=== PATIENT | female | born 1945 | race Caucasian/White ===

== ENCOUNTER 2024-11-16 16:31 | Inpatient (IN) | payer MEDICARE, SELFPAY ==
[2024-11-16] VITALS (11 sets, daily range): BP systolic 110–160; BP diastolic 72–105; BMI 26.9; BMI 27.8
[2024-11-16 13:38] LABS: % Basophils 1.2 % (0-2); % Eosinophils 1.8 % (0-6); % Immature Granulocytes 0.1 % (0-0.5); % Lymphocytes 27.4 % (20.5-51.1); % Monocytes 9.4 % (1.7-9.3); % Neutrophils 60.1 % (42.2-75.2); Absolute Basophils 0.1 10^3/uL (0-0.2); Absolute Eosinophils 0.1 10^3/uL (0-0.7); Absolute Lymphocytes 1.9 10^3/uL (1.2-3.4); Absolute Monocytes 0.6 10^3/uL (0.1-0.6); Absolute Neutrophils 4.1 10^3/uL (1.4-6.5); Hematocrit 42.6 % (37.0-47.0); Hemoglobin 14.1 g/dL (12.0-16.0); Mean Corp Hgb Conc. 33.1 g/dL (33.0-37.0); Mean Corpuscular Hgb 30.1 pg (27.0-31.0); Mean Corpuscular Volume 90.8 fL (81.0-99.0); Mean Platelet Volume 9.2 fL (7.4-10.4); Nucleated Red Blood Cells % 0 %; Platelet Count 202 10^3/uL (130-400); Red Blood Cell Count 4.69 10^6/uL (4.20-5.40); Red Cell Dist. Width 12.7 % (11.5-14.5); White Blood Cell Count 6.8 10^3/uL (4.8-10.8)
[2024-11-16 13:53] LABS: ALT (SGPT) 12 U/L (0-35); AST (SGOT) 20 U/L (14-36); Albumin 4.4 g/dl (3.5-5.0); Alkaline Phosphatase 64 U/L (38-126); Blood Urea Nitrogen 16 mg/dl (7-17); Carbon Dioxide 27 mmol/L (22-30); Chloride 104 mmol/L (98-107); Glucose 122 mg/dl (70-99); Potassium 4.7 mmol/L (3.5-5.1); Sodium 137 mmol/L (135-145); Total Bilirubin 0.7 mg/dl (0.2-1.3); eGFR > 60.00
[2024-11-16 14:07] LABS: Troponin I 0.065 ng/ml
[2024-11-16] MEDS: NITROSTAT (SUBLINGUAL) 0.4 MG SL ×2 (14:38→19:36)
--- NOTE | 2024-11-16 14:45 | ED.GENMED ---
History of Present Illness
<Flori Clancy MD - Last Filed: 11/16/24 14:52>
General
Chief Complaint: Chest Pain
Time Seen by Provider: 11/16/24 14:11
<Dianne Keating PA-C - Last Filed: 11/16/24 20:27>
General
Source: patient
Exam Limitations: none
Nursing documentation reviewed up to this point in time: agreed with
History of Present Illness
History of Present Illness:
Patient is an 79-year-old female presenting to the emergency department for evaluation of chest pain. Patient states that around 1215 while in congregational she started with a tightness sensation in her lower chest/epigastric region. This did occur as
her daughter seem to be having some type of psychiatric episode and was requiring physical restraining. Patient states there was a pain into her back, as well. Patient denies any associated shortness of breath, lightheadedness/dizziness,
nausea/vomiting, diaphoresis, visual changes, numbness/tingling in extremities.
By my assessment�patient reports a 7/10 tightness sensation in lower chest without radiation to back, jaw, shoulders.
Patient did receive 324 mg aspirin via EMS.
Patient denies prior cardiac history. Patient does not smoke.
Review of Systems
<Dianne Keating PA-C - Last Filed: 11/16/24 20:27>
Review of Systems
Allergies reviewed?: Yes
All Other Systems: ROS reviewed and negative except as documented in HPI and ROS
Phy Exam
<Dianne Keating PA-C - Last Filed: 11/16/24 20:27>
Physical Exam
Physical Exam:
Vitals: Mildly hypertensive on my assessment. Afebrile
General: Patient is well appearing, no acute distress. Nontoxic appearing
Skin: Warm and dry, no rashes or lesions
Head: Normocephalic, atraumatic
Eyes: Sclera nonicteric. EOMs intact. No nystagmus.
Throat: Protecting airway
Neck: Normal ROM, no cervical spine tenderness, no meningismus
Cardiac: Regular rate and rhythm, no murmurs. Mild reproducible tenderness in epigastric region.
Pulm: Normal respiratory effort, no wheezes, rales, rhonchi heard on exam.
Abdomen: Abdomen soft. No abdominal tenderness.
Extremities: No evidence of cyanosis or edema. 2+ radial pulses bilaterally.
Neuro: AAOx3. Grossly intact.
Psychiatric: Normal affect.
Scores
<Dianne Keating PA-C - Last Filed: 11/16/24 20:27>
Heart Score for Chest Pain Patients
STEMI patient?: No
History: Moderately Suspicious
ECG: Nonspecific Repolarization
Age: >/= 65 years
Risk Factors: 1 or 2 Risk Factors
Troponin: >/= 3 x Normal Limit
Heart Score for Chest Pain Patients: 7
Heart Score Risk: 72.7 % MACE over next 6 weeks
Course
<Flori Clancy MD - Last Filed: 11/16/24 14:52>
Orders/Labs/Results
Orders:
Orders
11/16/24 13:14
EKG [Electrocardiogram (*1)] Urgent
Reason for Study: Chest Pain
EKG- Treatment ONCE
11/16/24 13:32
Complete Blood Count/With Diff Urgent
Comprehensive Metabolic Panel Urgent
Troponin I Urgent
11/16/24 14:28
Electrocardiogram (*1) Urgent
Reason for Study: Chest Pain
EKG- Treatment ONCE
11/16/24 14:36
Nitroglycerin Sublingual [Nitrostat (Sublingual)] 0.4 mg .ROUTE .STK-MED ONE
11/16/24 14:37
Nitroglycerin Sublingual [Nitrostat (Sublingual)] 0.4 mg SL NOW STA
11/16/24 14:52
CR Chest - 2 Views Urgent
Comment:
Reason For Exam: chest pain
11/16/24 Dinner
Cholesterol Lowering
At Your Request: Full Participation
Does patient need a safe tray?: No
Cholesterol Lowering: Sodium, 2 Gram
Heparin 4,000 units IV NOW STA
Heparin 49840 Units/250 ml 25,000 units in 250 ml IV PER PROTOCOL
Weight to be used for heparin protocol in kilograms (kg):: 87.5
Protocol:: Cardiac Tx/Acute Coronary
PTT Goal Range to be used:: PTT 73 to 111 seconds
Order type:: Initial
INITIAL Infusion Dose (UNITS/KG/hr) & then follow protocol:: 12 units/kg/hr
Infusion Dose in UNITS/hr & then follow protocol (UNITS/hr):: 1,000
INFUSION RATE in mL/hr & then follow protocol (mL/hr):: 10
PTT less than or equal to 64 seconds:: Increase rate by 200 units/hr (+ 2 mL/hr)
PTT 64.1 to 72.9 seconds:: Increase rate by 100 units/hr (+ 1 mL/hr)
PTT 73 to 111 seconds:: Target Range. No change in rate.
PTT 111.1 to 130.9 seconds:: Decrease rate by 100 units/hr (- 1 mL/hr)
PTT 131 to 199.9 seconds:: HOLD for 1 hr. Then decrease rate by 200 units/hr (- 2 mL/hr)
PTT greater than or equal to 200 seconds:: HOLD for 2 hrs & Notify Provider. Then decrease by 200 units/hr (-
2 mL/hr)
Lab follow-up:: Each change, PTT q6h until 2 consecutive are therapeutic. Then PTT
daily.
Nursing to Place Non Medication Order As Directed
Physician Order: PTT 6 hours after initial start of Heparin infusion
Above order entered?: Yes
11/16/24 15:08
CARDIOLOGY CONSULT Urgent
Consulting Provider: Shayla Galindo
Was physician already notified: Yes
Metoprolol [Lopressor] 25 mg PO NOW STA
11/16/24 15:40
Admit/Transfer Patient As Directed
Co-Sign Provider:
Level of Care: Inpatient admission
Assign to:: IVU
Physician / Group: Jorge Shea
Diagnosis: chest pain, NSTEMI
Reason for Hospitalization: chest pain, NSTEMI
Expected length of stay greater than two midnights?: Yes
ELOS- Estimated Length of Stay in days: 2
I certify the patient meets the requirements for IP care: Yes
PRN Pain Medication Management As Directed
May give lesser potent ordered pain med per pt: Yes
preference::
Protocol:: Medication orders for pain may be administered in a
manner that supports deferring to patient preference
when the pt is:
- Requesting an ordered lesser potent pain medication.
Least to most potent pain medications are defined
as: acetaminophen < NSAID < tramadol < opioids
(morphine, oxycodone, hydromorphone).
- Requesting a lesser dose of the same medication IF
ORDERED.
- Requesting a less intrusive route of administration
if both routes are prescribed by the provider (PO <
IV).
11/16/24 15:41
Code Status As Directed
Resuscitation Status: Full Code
11/16/24 16:06
PTT Urgent
Comment: Obtain baseline before beginning heparin infusion if not already collected
Troponin I Urgent
11/16/24 16:30
Electrocardiogram (*1) Urgent
Reason for Study: Chest Pain
11/16/24 18:00
Nitroglycerin Sublingual [Nitrostat (Sublingual)] 0.4 mg SL [id number] PRN
Ondansetron Injectable [Zofran] 4 mg IV Q6HPRN PRN
Polyethylene Glycol Powder [Miralax] 17 grams PO DAILYPRN PRN
11/16/24 18:00
Glycohemoglobin (HgbA1c) Routine
Activity As Directed
Activity Level: With Assistance
INT (Intravenous Needle Therapy) As Directed
Comment: maintain peripheral IV access
Intake/ Output As Directed
Frequency: Per unit guidelines
Vital Signs As Directed
Frequency: q4h
Weight As Directed
Frequency: Daily
O2 Therapy [RESP] Routine
Titrate/Wean O2 to maintain O2 sat greater than (%): 88
11/16/24 18:40
Artificial Tears (Pf) [Refresh Eye Drops (Pf)] 1 drops BOTH EYES DAILYPRN PRN
11/16/24 19:00
Troponin I Q3H
Comment: at admit & Q3H for 3 total including ED draws, obtain ECG with each level
11/16/24 20:00
Timolol Maleate/Dorzolam HCl [Cosopt Eye Drops] 1 drop BOTH EYES BID
11/16/24 22:00
Troponin I Q3H
Comment: at admit & Q3H for 3 total including ED draws, obtain ECG with each level
11/17/24 Breakfast
NPO
Allow oral meds: Yes
Allow clear liquids: 4hrs prior to procedure
Comment: may have unrestricted clear liquid up to 4 hrs prior to scheduled procedure
Complete Blood Count/With Diff IN AM
Comprehensive Metabolic Panel IN AM
Lipid Profile [Cardiovascular Evaluation] IN AM
Abnormal Lab Results
11/16/24 11/16/24
13:32 16:06
Monocytes % 9.4 H %
(1.7-9.3)
Glucose 122 H mg/dl
(70-99)
Troponin I 0.065 H* ng/ml 0.796 H* D ng/ml
11/16/24 13:32
11/16/24 13:32
Vital Signs
Initial and Last Documented VS:
Initial Vital Signs
Temp Pulse Resp BP Pulse Ox
97.4 F 70 16 160/105 99
11/16/24 13:21 11/16/24 13:21 11/16/24 13:21 11/16/24 13:21 11/16/24 13:21
Last Documented Vital Signs
Temp Pulse Resp BP Pulse Ox
97.6 F 68 18 126/73 97
11/16/24 20:15 11/16/24 20:15 11/16/24 18:05 11/16/24 20:00 11/16/24 20:15
<Dianne Keating PA-C - Last Filed: 11/16/24 20:27>
Orders/Labs/Results
Orders:
Orders
11/16/24 13:14
EKG [Electrocardiogram (*1)] Urgent
Reason for Study: Chest Pain
EKG- Treatment ONCE
11/16/24 13:32
Complete Blood Count/With Diff Urgent
Comprehensive Metabolic Panel Urgent
Troponin I Urgent
11/16/24 14:28
Electrocardiogram (*1) Urgent
Reason for Study: Chest Pain
EKG- Treatment ONCE
11/16/24 14:36
Nitroglycerin Sublingual [Nitrostat (Sublingual)] 0.4 mg .ROUTE .STK-MED ONE
11/16/24 14:37
Nitroglycerin Sublingual [Nitrostat (Sublingual)] 0.4 mg SL NOW STA
11/16/24 14:52
CR Chest - 2 Views Urgent
Comment:
Reason For Exam: chest pain
11/16/24 Dinner
Cholesterol Lowering
At Your Request: Full Participation
Does patient need a safe tray?: No
Cholesterol Lowering: Sodium, 2 Gram
Heparin 4,000 units IV NOW STA
Heparin [id number] Units/250 ml 25,000 units in 250 ml IV PER PROTOCOL
Weight to be used for heparin protocol in kilograms (kg):: 87.5
Protocol:: Cardiac Tx/Acute Coronary
PTT Goal Range to be used:: PTT 73 to 111 seconds
Order type:: Initial
INITIAL Infusion Dose (UNITS/KG/hr) & then follow protocol:: 12 units/kg/hr
Infusion Dose in UNITS/hr & then follow protocol (UNITS/hr):: 1,000
INFUSION RATE in mL/hr & then follow protocol (mL/hr):: 10
PTT less than or equal to 64 seconds:: Increase rate by 200 units/hr (+ 2 mL/hr)
PTT 64.1 to 72.9 seconds:: Increase rate by 100 units/hr (+ 1 mL/hr)
PTT 73 to 111 seconds:: Target Range. No change in rate.
PTT 111.1 to 130.9 seconds:: Decrease rate by 100 units/hr (- 1 mL/hr)
PTT 131 to 199.9 seconds:: HOLD for 1 hr. Then decrease rate by 200 units/hr (- 2 mL/hr)
PTT greater than or equal to 200 seconds:: HOLD for 2 hrs & Notify Provider. Then decrease by 200 units/hr (-
2 mL/hr)
Lab follow-up:: Each change, PTT q6h until 2 consecutive are therapeutic. Then PTT
daily.
Nursing to Place Non Medication Order As Directed
Physician Order: PTT 6 hours after initial start of Heparin infusion
Above order entered?: Yes
11/16/24 15:08
CARDIOLOGY CONSULT Urgent
Consulting Provider: Shayla Galindo
Was physician already notified: Yes
Metoprolol [Lopressor] 25 mg PO NOW STA
11/16/24 15:40
Admit/Transfer Patient As Directed
Co-Sign Provider:
Level of Care: Inpatient admission
Assign to:: IVU
Physician / Group: Jorge Shea
Diagnosis: chest pain, NSTEMI
Reason for Hospitalization: chest pain, NSTEMI
Expected length of stay greater than two midnights?: Yes
ELOS- Estimated Length of Stay in days: 2
I certify the patient meets the requirements for IP care: Yes
PRN Pain Medication Management As Directed
May give lesser potent ordered pain med per pt: Yes
preference::
Protocol:: Medication orders for pain may be administered in a
manner that supports deferring to patient preference
when the pt is:
- Requesting an ordered lesser potent pain medication.
Least to most potent pain medications are defined
as: acetaminophen < NSAID < tramadol < opioids
(morphine, oxycodone, hydromorphone).
- Requesting a lesser dose of the same medication IF
ORDERED.
- Requesting a less intrusive route of administration
if both routes are prescribed by the provider (PO <
IV).
11/16/24 15:41
Code Status As Directed
Resuscitation Status: Full Code
11/16/24 16:06
PTT Urgent
Comment: Obtain baseline before beginning heparin infusion if not already collected
Troponin I Urgent
11/16/24 16:30
Electrocardiogram (*1) Urgent
Reason for Study: Chest Pain
11/16/24 18:00
Nitroglycerin Sublingual [Nitrostat (Sublingual)] 0.4 mg SL [id number] PRN
Ondansetron Injectable [Zofran] 4 mg IV Q6HPRN PRN
Polyethylene Glycol Powder [Miralax] 17 grams PO DAILYPRN PRN
11/16/24 18:00
Glycohemoglobin (HgbA1c) Routine
Activity As Directed
Activity Level: With Assistance
INT (Intravenous Needle Therapy) As Directed
Comment: maintain peripheral IV access
Intake/ Output As Directed
Frequency: Per unit guidelines
Vital Signs As Directed
Frequency: q4h
Weight As Directed
Frequency: Daily
O2 Therapy [RESP] Routine
Titrate/Wean O2 to maintain O2 sat greater than (%): 88
11/16/24 18:40
Artificial Tears (Pf) [Refresh Eye Drops (Pf)] 1 drops BOTH EYES DAILYPRN PRN
11/16/24 19:00
Troponin I Q3H
Comment: at admit & Q3H for 3 total including ED draws, obtain ECG with each level
11/16/24 20:00
Timolol Maleate/Dorzolam HCl [Cosopt Eye Drops] 1 drop BOTH EYES BID
11/16/24 22:00
Troponin I Q3H
Comment: at admit & Q3H for 3 total including ED draws, obtain ECG with each level
11/17/24 Breakfast
NPO
Allow oral meds: Yes
Allow clear liquids: 4hrs prior to procedure
Comment: may have unrestricted clear liquid up to 4 hrs prior to scheduled procedure
Complete Blood Count/With Diff IN AM
Comprehensive Metabolic Panel IN AM
Lipid Profile [Cardiovascular Evaluation] IN AM
Abnormal Lab Results
11/16/24 11/16/24
13:32 16:06
Monocytes % 9.4 H %
(1.7-9.3)
Glucose 122 H mg/dl
(70-99)
Troponin I 0.065 H* ng/ml 0.796 H* D ng/ml
11/16/24 13:32
11/16/24 13:32
Vital Signs
Initial and Last Documented VS:
Initial Vital Signs
Temp Pulse Resp BP Pulse Ox
97.4 F 70 16 160/105 99
11/16/24 13:21 11/16/24 13:21 11/16/24 13:21 11/16/24 13:21 11/16/24 13:21
Last Documented Vital Signs
Temp Pulse Resp BP Pulse Ox
97.6 F 68 18 126/73 97
11/16/24 20:15 11/16/24 20:15 11/16/24 18:05 11/16/24 20:00 11/16/24 20:15
<Dianne Keating PA-C - Last Filed: 11/16/24 20:27>
MDM/Problems Addressed
Differential Diagnosis Includes:
Not limited to: ACS, panic attack, GERD, Takotsubo cardiomyopathy, aortic dissection, etc.
MDM/Problems Addressed:
79-year-old female presenting via EMS with acute onset chest discomfort after confrontation with daughter. On arrival�patient hypertensive initially which did improve by my assessment. Otherwise stable vital signs. She reports initial 03/19 chest
discomfort without radiation. Initial EKG does show mild T wave flattening in V3-V6 also noted in 3, aVF. There was initial concern for ACS. Feel aortic dissection less likely as patient's hypertension improved, has palpable and equal distal
pulses and equal BPs although will obtain chest x-ray for further evaluation. Basic labs and troponin were sent off. CBC/CMP unremarkable although troponin elevated to 0.065. Repeat EKG obtained by my assessment shows new T wave inversions in
leads V3 to V6, also mildly noted in 3, aVF. Chest x-ray does not show widened mediastinum. Will trend troponin. Cardiology consulted.
Concern for NSTEMI with elevated troponin, ischemic changes on EKG, and chest discomfort. Patient was given 1 sublingual nitroglycerin with complete improvement of pain. After discussion with cardiology�heparin drip was initiated in ED and patient
was admitted to hospitalist. Plan for cardiac echo in morning to rule out Takotsubo cardiomyopathy and then cardiac catheterization in afternoon, if needed. Patient accepted to hospital service in stable condition.
Chronic conditions affecting care:
N/A
Acute Exacerbation and/or Progression of Chronic Illness:
N/A
<Dianne Keating PA-C - Last Filed: 11/16/24 20:27>
*Radiology
Radiology exam reviewed: preliminary read by ED provider (Chest x-ray reviewed by me-no acute abnormality) and radiology read reviewed
*Pulse Oximetry
Patient hypoxic: no
*EKG
Interpreted by ED Provider?: Yes
EKG Intrepretation Date: 11/16/24
Interpretation: abnormal
Comparison EKG: changes noted
Heart Rate: 76
Rate: normal
Rhythm: sinus
[place]: normal axis
Interval: normal QT interval
QRS Pattern: normal QRS
Ischemia: T-wave inversion (T wave inversion V 3, V4, V6)
*Helicopter Pilot Interpretation
Rate: normal
Interpretation: normal
Heart Rate: 72
Rhythm: sinus
*Critical Care Note
Total Time (30-74mins, 75-104mins- exclusive of procedures): 35
comment:
Critical care statement: A total of 35 minutes of critical care time was provided for this patient. This includes management of unstable vital signs, evaluation of the patient at bedside, reviewing the patient's pertinent medical records, discussion
with consultants, review of old EKGs and review of pertinent medical records. This time with separate from time utilized to perform the aforementioned documented procedures
<Dianne Keating PA-C - Last Filed: 11/16/24 20:27>
Patient Management
Discussion with other providers: Hospitalist and Director Internal Audit (Case discussed with cardiology)
Escalation/DeEscalation of care consider admission/obs:
Admit indicated
ED Attending Note
<Flori Clancy MD - Last Filed: 11/16/24 14:52>
ED Attending Note
Patient seen and examined by attending physician: Yes
I performed the substantive portion of visit, reviewed & personally made and approve the management plan that is documented in note by myself or CHANEL.: Yes
ED Attending Note:
I have seen and evaluated the patient with a [id number] encounter. I have spoken to the [PA] and involved in the medical history, the physical exam, medical decision making.
Evaluation and management service: agree unless noted differently below.
Results interpretation: agree unless noted differently below.
79-year-old woman presenting to the emergency department chest pain. Patient states that she was at congregational when she had a confrontation with her daughter and developed midsternal chest pain. It does not radiate. She has never had this pain
before. It is not exertional. She has had a stress test done that was normal a few years ago. Denies any shortness of breath diaphoresis nausea vomiting. Per medics they did give her 324 of aspirin. Patient states that she continues to have
similar 10 pain.
GENERAL: in no acute distress
HEENT: normocephalic, extraocular movements intact, moist oral mucosa
NECK: normal inspection
RESPIRATORY: no respiratory distress, clear to auscultation bilaterally
CARDIOVASCULAR: regular rate and rhythm, 2+ radial pulses bilaterally,
ABDOMEN/: soft, non-distended, non-tender to palpation, no rebound or guarding
EXTREMITIES: non-tender, no edema/swelling
NEUROLOGIC: awake and alert, moves all extremities
SKIN: warm
79-year-old woman presenting to the emergency department with chest pain that occurred after confrontation with her daughter. Vitals are initially notable for hypertension that improved without any intervention. Concern for ACS. Blood work
obtained does show elevated troponin. EKG per my interpretation with T wave inversion V3 to v6. As well as an 3 and aVF. Will discuss with cardiology. Patient was given nitro that resolved her pain. Patient will need admission for further
evaluation
<Dianne Keating PA-C - Last Filed: 11/16/24 20:27>
-
Portions of this chart may have been created with voice recognition software.� Occasional wrong word or��sound alike� substitutions may have occurred due to the inherent limitations of voice recognition software.
Discharge Plan
Departure
Patient Disposition: Admit
Date of Disposition: 11/16/24
Time of Disposition: 15:08
Presentation/result/management discussed w/ accepting MD/DO: Hospitalist
Discharge Problem:
Non-ST elevation [place] (NSTEMI)
Interventions
Interventions:
*Risk Screen - Suicide Last Done: 11/16/24 14:23
*General Assessment Last Done: 11/16/24 14:23
*Neglect/Abuse Screening Last Done: 11/16/24 14:23
*ED COVID-19 Vaccine History Last Done: 11/16/24 19:38
*Nursing Disposition Last Done: 11/16/24 17:56
ED- Cardiac Assessment Last Done: 11/16/24 14:23
Discharge Date and Time
Discharge Date/Time: 11/16/24 17:56
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
[2024-11-16] MEDS: HEPARIN 4000 UNITS IV (15:29)
[2024-11-16] MEDS: LOPRESSOR 25 MG PO ×2 (15:29→20:00)
--- NOTE | 2024-11-16 15:36 | PHANOTE ---
med rec tech: patient gets her eye drops filled by mail order (possibly [facility]) and I cannot confirm in [facility]
--- NOTE | 2024-11-16 15:40 | HPS.HSE ---
Family Physician
-
Family Physician: Krystian Martinez
Chief Complaint
-
Substernal chest pain
History of Present Illness
Patient is 79-year-old female with past medical history of glaucoma, history of total vaginal hysterectomy/BSO, appendectomy/history of colon resection for diverticulitis, history of cholecystectomy, bilateral TKR, tonsillectomy, bilateral cataract
surgery came to ER with new onset of substernal chest discomfort with nonradiating in nature which started in yazdanism today. Patient denies any associated diaphoresis/nausea. No previous history of coronary issues or similar episodes. Denies
dizziness/palpitation. Patient used to smoke in the past no alcohol use, no prediabetes, no history of premature coronary disease in family. Initial evaluation showing minimal troponin elevation with EKG showing anterolateral lead T wave
inversion. Patient loaded with aspirin 325 mg and started on heparin drip by cardiology. Patient being admitted to cardiac unit for further monitoring.
No GI/ complaints
Medical History
Past Medical History
Past Medical History: Reports Other
Additional Past Medical History:
history of glaucoma, history of total vaginal hysterectomy/BSO, appendectomy/history of colon resection for diverticulitis, history of cholecystectomy, bilateral TKR, tonsillectomy, bilateral cataract surgery
Past Surgical History: Reports Other
Social History
Tobacco: Former Smoker
Alcohol: None
Drug: None
Employment: Employed
Family History
Family History: Not pertinent
Allergies / Home Medications
Allergies reflects when Allergies were last updated in [facility].
Home Medications with original date entered in [employer] [facility]
Allergy/Medication List:
Allergies
Allergy/AdvReac Type Severity Reaction Status Date / Time
egg Allergy Unknown Verified 11/16/24 13:26
shellfish derived Allergy Unknown Verified 11/16/24 13:26
shrimp Allergy Unknown Verified 11/16/24 13:26
amoxicillin [From Augmentin] AdvReac Nausea / Verified 11/16/24 13:26
Vomiting
clavulanic acid AdvReac Nausea / Verified 11/16/24 13:26
[From Augmentin] Vomiting
Home Medications
ascorbic acid (vitamin C) 500 mg tablet 500 mg PO DAILY 11/16/24
dorzolamide 22.3 mg-timolol 6.8 mg/mL eye drops (Cosopt) 1 drp BOTH EYES BID 11/16/24
peg 400-propylene glycol (PF) 0.4 %-0.3 % eye drops in a dropperette (Systane (PF)) 1 drp BOTH EYES DAILYPRN PRN dry eyes 11/16/24
polyethylene glycol 3350 17 gram oral powder packet 17 g PO DAILYPRN PRN constipation 11/16/24
zinc gluconate 50 mg tablet 50 mg PO DAILY 11/16/24
Review of Systems
-
A 12 point ROS was completed and negative except as noted: Yes
Physical Exam
Vital Signs
Vital Signs
Temp Pulse Resp BP Pulse Ox
97.4 F 82 16 136/84 99
11/16/24 13:21 11/16/24 15:29 11/16/24 13:21 11/16/24 15:29 11/16/24 14:26
Physical Exam
General: Well Developed, Well Nourished and No Apparent Distress
HEENT: NormoCephalic, Moist mucous membranes and Atraumatic
Respiratory: Clear
Cardiac: S1/S2 and Regular Rhythm; No Murmur or Rub
GI: Soft, Non Tender, Non Distended and Normal Bowel Sounds; No Organomegaly
Rectal: Deferred by Provider
Musculoskeletal: No Clubbing, No Cyanosis and No Edema
Skin: No Rash
Neuro: Nonfocal/grossly intact
Laboratory Results
-
11/16/24 13:32
11/16/24 13:32
Laboratory Results
Total Bilirubin 0.7 mg/dl (0.2-1.3) 11/16/24 13:32
AST 20 U/L (14-36) 11/16/24 13:32
ALT 12 U/L (0-35) 11/16/24 13:32
Alkaline Phosphatase 64 U/L (38-126) 11/16/24 13:32
Troponin I 0.065 ng/ml H* 11/16/24 13:32
Impression/Plan
-
1. NSTEMI
Troponin elevation
-Patient comes in for classical substernal chest pain, no nausea/diaphoresis. Relieved by nitro pills
-No previous history of coronary artery disease
-Non-smoker/nondiabetic. No hyperlipidemia. No premature coronary disease history in family.
-Patient had previous stress test and was negative
-Troponin marginally elevated to 0.065. f/u trop ordered
-Repeat EKG showing T wave inversion in V2-V4 leads
-Patient got aspirin 325 mg in ER, started on heparin drip
-Cardiology evaluated and likely planning to do an echocardiogram/heart catheterization tomorrow
-Maintain n.p.o. past midnight
-Admit to telemetry/IV U floor
history of glaucoma
history of total vaginal hysterectomy/BSO
appendectomy
history of colon resection for diverticulitis
history of cholecystectomy
bilateral TKR
tonsillectomy
bilateral cataract surgery
DVT PPX -heparin drip
Full code
Total time spent : 77 mins
I personally saw and examined the patient.
I have reviewed all diagnostic interpretations and treatment plans as written.
Time includes patient management by me, time spent at the patients bedside, time to review lab and imaging results, discussing patient care, documentation in the medical record, and time spent with the family or caregiver and discussing care plan
with RN/Consultants.
[2024-11-16 16:32] LABS: APTT 25.4 Sec (23.4-35.0)
[2024-11-16 17:17] LABS: Troponin I 0.796 ng/ml
[2024-11-16] MEDS: HEPARIN 25000 UNITS/250 ML IV (18:09)
--- NOTE | 2024-11-16 19:16 | PTCARENOTE ---
Received pt from the ED. Pt c/o 1 out of 10 left chest 'ache'. Pt stated that the 'ache' was located to the lower left boarder of her sternum. She stated that this ache started about 15 minutes prior to arrival in IVU. Pt stated that this 'ache'
was not the same feeling or location of the chest pain that brought her to the ED. She feels that the original discomfort 'migrated.' EKG obtained. Heparin drip initiated at 10 ml/hr. Pt instructed to notify catering staff member if her 'ache' worsened.
Report given to equipment lead RN, who assumed care of the pt.
[2024-11-16] MEDS: LIPITOR 20 MG PO (19:59)
[2024-11-16] MEDS: COSOPT EYE DROPS 1 DROP BOTH EYES (20:03)
[2024-11-16 22:16] LABS: Troponin I 0.997 ng/ml
[2024-11-16 23:45] LABS: APTT 74.2 Sec (23.4-35.0)
[2024-11-16 23:46] LABS: Troponin I 0.878 ng/ml
[2024-11-17] VITALS (15 sets, daily range): BP systolic 92–134; BP diastolic 59–82; BMI 27.7
--- NOTE | 2024-11-17 00:54 | PTCARENOTE ---
Rec'd pt at change of shift. Pt admission complete. Heparin infusing as ordered. Pt reported chest pain and rated as 1.75 out of 10 on pain scale. 1 sublingual nitro given as ordered with immediate relief and then rate pain at a 0. BAND INSTRUMENT REPAIRER
notified. Pt VSS and SR on tele monitor. See MAR and flowchart for full pt assessment. Pt resting with call loaiza in reach and plan of care ongoing.
[2024-11-17 05:40] LABS: APTT 77.7 Sec (23.4-35.0)
[2024-11-17 05:48] LABS: % Basophils 0.7 % (0-2); % Eosinophils 2.9 % (0-6); % Immature Granulocytes 0.4 % (0-0.5); % Lymphocytes 30.7 % (20.5-51.1); % Monocytes 9.6 % (1.7-9.3); % Neutrophils 55.7 % (42.2-75.2); Absolute Basophils 0.1 10^3/uL (0-0.2); Absolute Eosinophils 0.2 10^3/uL (0-0.7); Absolute Lymphocytes 2.1 10^3/uL (1.2-3.4); Absolute Monocytes 0.7 10^3/uL (0.1-0.6); Absolute Neutrophils 3.8 10^3/uL (1.4-6.5); Hematocrit 40.2 % (37.0-47.0); Hemoglobin 12.9 g/dL (12.0-16.0); Mean Corp Hgb Conc. 32.1 g/dL (33.0-37.0); Mean Corpuscular Hgb 29.5 pg (27.0-31.0); Mean Platelet Volume 9.7 fL (7.4-10.4); Nucleated Red Blood Cells % 0 %; Platelet Count 159 10^3/uL (130-400); Red Blood Cell Count 4.37 10^6/uL (4.20-5.40); Red Cell Dist. Width 12.6 % (11.5-14.5); White Blood Cell Count 6.8 10^3/uL (4.8-10.8)
[2024-11-17 05:49] LABS: ALT (SGPT) 11 U/L (0-35); AST (SGOT) 21 U/L (14-36); Albumin 3.4 g/dl (3.5-5.0); Alkaline Phosphatase 59 U/L (38-126); Blood Urea Nitrogen 14 mg/dl (7-17); Calcium 9.2 mg/dl (8.4-10.2); Carbon Dioxide 26 mmol/L (22-30); Chloride 109 mmol/L (98-107); Estimated Creatinine Clearance 70 ml/min; Glucose 99 mg/dl (70-99); HDL Cholesterol 58 mg/dl; LDL Cholesterol, Calculated 89 mg/dl; Sodium 139 mmol/L (135-145); Total Bilirubin 0.6 mg/dl (0.2-1.3); Total Cholesterol 163 mg/dl (50-199); Triglyceride 84 mg/dl (10-149); Very Low Density Lipoprotein 16 mg/dl (0-30); eGFR > 60.00
--- NOTE | 2024-11-17 08:10 | PTCARENOTE ---
Assumed care of pt from prev nsg shift; Pt AAOx3 w/no c/o CP or SOB. Pt's VSS w/HR 50's-60's, BP 118/65 this AM. Pt w/Heparin IV drip infusing through patent IV line as ordered. Pt NPO awaiting operations label clerk this AM. Pt w/call loaiza within reach & plan of
care ongoing.
[2024-11-17 08:36] LABS: Glycohemoglobin (HgbA1c) 5.6 % (4.0-5.6)
[2024-11-17] MEDS: COSOPT EYE DROPS 1 DROP BOTH EYES ×2 (09:10→19:57)
[2024-11-17] MEDS: LOPRESSOR 25 MG PO ×2 (09:11→19:56)
[2024-11-17] MEDS: LOW STRENGTH ASPIRIN 81 MG PO (09:11)
--- NOTE | 2024-11-17 09:20 | W.PN.HOSP.TC ---
Today's Communication/Plan
-
for left heart cath
Assessment / Plan
Assessment / Plan
pt is an 79 year old female
NSTEMI-- with Troponin elevation now decreasing--apprec cards--for left heart cath today--No previous history of coronary artery disease--Patient had previous stress test and was negative--EKG showed T wave inversion in V2-V4 leads--cont asa/heparin
drip--echo also pending
history of glaucoma--cont eye drops
DVT Proph--heparin drip
code status--Full code
Anticipated Discharge: 24 - 48 hours
Subjective/Interval History
-
Date of Service: November 17, 2024
pt without chest pain
Objective Data
-
Labs:
Laboratory Results
11/16/24 11/17/24
23:10 05:15
WBC 6.8
Hgb 12.9
Hct 40.2
Plt Count 159 D
APTT 74.2 H 77.7 H
Sodium 139
Potassium 4.0
Chloride 109 H
Carbon Dioxide 26
BUN 14
Creatinine 0.7
Glucose 99
Calcium 9.2
Total Bilirubin 0.6
AST 21
ALT 11
Alkaline Phosphatase 59
Vital Signs:
max temp for 24 hours
11/17/24
05:05
Temp 98.4 F
Vital Signs
Temp Pulse Resp BP Pulse Ox
97.8 F 57 18 118/65 97
11/17/24 07:25 11/17/24 07:25 11/17/24 07:25 11/17/24 07:25 11/17/24 07:25
I&O
11/16/24 11/17/24 11/18/24
06:59 06:59 06:59
Intake Total 1680 / 1680
Balance 1679
Review of Systems
-
All other systems: Reviewed and negative
Physical Exam
-
General: Well Developed, Well Nourished and No Apparent Distress
HEENT: Normocephalic and Atraumatic
Respiratory: Clear to Auscultation; Negative Wheezes or Rhonchi
Cardiac: Regular Rhythm, S1/S2 and Murmur (intermittent murmur)
GI: Soft, Nontender, Nondistended and Normal Bowel Sounds
Musculoskeletal: Negative No Edema (trace)
Neuro: Awake and Alert
Psych: Calm
--- NOTE | 2024-11-17 12:50 | PTCARENOTE ---
Report given to Toña in the roofing laborer; Pt's IV Heparin stopped & pt taken to roofing laborer in bed.
--- NOTE | 2024-11-17 13:06 | CM ---
spoke to pt in room, her daughter lives with her in a 2 story home with 2 steps to enter. she has a cand and a walker at home to use if needed. she denies any dc planning needs. plan is for dc to home when medically stable.
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
--- NOTE | 2024-11-17 13:51 | PTCARENOTE ---
Received pt post cath. Pt AAO x3, VSS,IVF's at KVO. Right radial band intact. Pt denies any chest discomfort. Will monitor.
[2024-11-17] MEDS: LIPITOR 20 MG PO (18:24)
--- NOTE | 2024-11-17 20:57 | PTCARENOTE ---
Rec'd pt at change of shift. Pt denies having any pain or discomfort. VSS, SR on tele monitor, and AAO*3. R radial site CDI and pt agreed to limb restrictions. Pt resting with call loaiza in reach and plan of care ongoing. See MAR and flowchart
for full pt care and assessment.
[2024-11-18 02:45] VITALS: BP 123/70
[2024-11-18 02:48] VITALS: BP 123/70
[2024-11-18 03:01] VITALS: BMI 27.2
[2024-11-18 03:27] LABS: Hematocrit 39.5 % (37.0-47.0); Hemoglobin 12.8 g/dL (12.0-16.0); Mean Corp Hgb Conc. 32.4 g/dL (33.0-37.0); Mean Corpuscular Hgb 29.4 pg (27.0-31.0); Mean Corpuscular Volume 90.8 fL (81.0-99.0); Platelet Count 166 10^3/uL (130-400); Red Blood Cell Count 4.35 10^6/uL (4.20-5.40); Red Cell Dist. Width 12.5 % (11.5-14.5); White Blood Cell Count 6.3 10^3/uL (4.8-10.8)
[2024-11-18 03:38] LABS: APTT 26.3 Sec (23.4-35.0)
[2024-11-18 03:52] LABS: Blood Urea Nitrogen 13 mg/dl (7-17); Calcium 9.3 mg/dl (8.4-10.2); Carbon Dioxide 27 mmol/L (22-30); Chloride 108 mmol/L (98-107); Estimated Creatinine Clearance 70 ml/min; Glucose 92 mg/dl (70-99); Magnesium 2.1 mg/dl (1.6-2.3); Potassium 4.2 mmol/L (3.5-5.1); Sodium 139 mmol/L (135-145); eGFR > 60.00
[2024-11-18 04:06] LABS: Troponin I 0.088 ng/ml
[2024-11-18 07:05] VITALS: BP 135/91
--- NOTE | 2024-11-18 08:07 | W.PN.HOSP.TC ---
Addendum entered and electronically signed by Patricia Rabago MD 11/18/24 09:02:
cardiology changing nomenclature to nonischemic myocardial injury due to hypertensive emergency
Original Note:
Today's Communication/Plan
-
d/c
Assessment / Plan
Assessment / Plan
pt is an 79 year old female
NSTEMI-- with Troponin elevation now decreasing--apprec cards--s/p left heart cath with nonobstructive CAD--No previous history of coronary artery with EF 55-60%
history of glaucoma--cont eye drops
DVT Proph--heparin drip
code status--Full code
Anticipated Discharge: Today
Subjective/Interval History
-
Date of Service: November 18, 2024
no c/o--ready to go home
Objective Data
-
Labs:
Laboratory Results
11/18/24
02:57
WBC 6.3
Hgb 12.8
Hct 39.5
Plt Count 166
APTT 26.3
Sodium 139
Potassium 4.2
Chloride 108 H
Carbon Dioxide 27
BUN 13
Creatinine 0.7
Glucose 92
Calcium 9.3
Vital Signs:
max temp for 24 hours
11/17/24
22:48
Temp 98.3 F
Vital Signs
Temp Pulse Resp BP Pulse Ox
97.7 F 52 18 123/70 97
11/18/24 07:02 11/18/24 02:45 11/18/24 07:02 11/18/24 02:45 11/18/24 07:02
I&O
11/17/24 11/18/24 11/19/24
06:59 06:59 06:59
Intake Total 1680 / 1680 1200 / 1200
Balance 1680 / 1680 1200 / 1200
Review of Systems
-
All other systems: Reviewed and negative
Physical Exam
-
General: Well Developed, Well Nourished and No Apparent Distress
HEENT: Normocephalic and Atraumatic; Negative Oxygen
Respiratory: Clear to Auscultation; Negative Wheezes or Rhonchi
Cardiac: Regular Rhythm and S1/S2; Negative Murmur
GI: Soft, Nontender, Nondistended and Normal Bowel Sounds
Musculoskeletal: No Clubbing, No Cyanosis and No Edema
Skin: Warm
Neuro: Awake and Alert
Psych: Calm
--- NOTE | 2024-11-18 08:16 | W.DCSUMMARY ---
Addendum entered and electronically signed by Patricia Rabago MD 11/18/24 09:02:
cardiology changing nomenclature to nonischemic myocardial injury due to hypertensive emergency
Original Note:
Discharge Summary
Discharge Data
Date of Admission: 11/16/24
Date of Discharge: 11/18/24
-
Pending Results: No
Hospital Course
Primary care physician : Krystian Martinez
Principal Discharge diagnosis : Non-ST segment elevation myocardial infarction
Chronic Discharge diagnosis : Glaucoma
Hospital Course : Patient was an 79-year-old female who presented with substernal chest discomfort which was nonradiating in nature which started in discharge on the day of admission. She denied any diaphoresis, nausea or any similar episodes.
Patient used to smoke and has no alcohol use and no history of premature coronary artery disease in the family. EKG showed anterolateral lead T wave inversion. Patient was given full-strength aspirin and started on IV heparin drip and was admitted.
Problem #1: Non-ST segment elevation myocardial infarction. Patient was admitted and seen in consultation by cardiology. Troponin started at 0.065 and peaked at 0.997 followed by decreasing back to 0.08. Patient had echocardiogram which was
essentially normal. She also underwent cardiac catheterization which showed nonobstructive coronary artery disease. Lipids were checked which showed a total cholesterol of 163, LDL of 89, HDL 58. She was started on low-dose statin. She should
continue daily aspirin and beta-abdoulaye and she will be given sublingual nitroglycerin as needed for chest pain. She should follow-up with cardiology as an outpatient.
Problem #2: All other medical issues. These include glaucoma. This medical issue was stable during her hospitalization. Medications were continued as able.
Patient is stable for discharge home at this time. If there are any questions regarding this dictation or her hospital stay, please not hesitate to call. Our office number is [phone].
Procedure findings :
ECHOCARDIOGRAM CONCLUSIONS:
Normal left ventricular size and function. Normal regional wall motion. Mild
concentric left ventricular hypertrophy. LV ejection fraction is 55-60%.
Mild mitral regurgitation.
Mild to moderate aortic regurgitation.
Mild to moderate tricuspid regurgitation. Estimated pulmonary artery pressure
of 30-35 mmHg.
Mild pulmonic regurgitation.
The IVC is severely dilated but does demonstrate normal respiratory variation.
No prior study available for comparison.
CARDIAC CATHETERIZATION CONCLUSIONS:
1. Nonobstructive coronary disease
2. Preserved left ventricular systolic function
Discharge Plan
-
Patient Disposition: Home (Routine Discharge)
Discharge Diagnosis/Procedures: Non-ST segment elevation myocardial infarction status post cardiac catheterization, history of glaucoma
Condition: Good
Diet: Low Cholesterol and Low Sodium
Activity: As tolerated
Driving Restrictions: No driving for 24 hours
Bathing Restrictions: None
Stand Alone Forms: DC Instructions- Cath/EP Lab
Referrals:
Krystian Martinez MD [Family Provider] - in less than 1 week
Shayla Galindo DO [Active] - (as instructed)
Prescriptions:
New
atorvastatin 20 mg Tablet
20 mg PO QPM Qty: 30 0RF
metoprolol tartrate 25 mg Tablet
25 mg PO BID Qty: 60 0RF
nitroglycerin 0.4 mg Tablet, Sublingual
0.4 mg sublingual [id number] PRN (Reason: chest pain) Qty: 20 0RF
aspirin 81 mg Tablet,Chewable
81 mg PO DAILY Qty: 0 0RF
Continued
polyethylene glycol 3350 17 gram Powder In Packet
17 g PO DAILYPRN PRN (Reason: constipation)
Systane (PF) 0.4-0.3 % Dropperette
1 drp BOTH EYES DAILYPRN PRN (Reason: dry eyes)
ascorbic acid (vitamin C) 500 mg Tablet
500 mg PO DAILY Qty: 0 0RF
zinc gluconate 50 mg Tablet
50 mg PO DAILY Qty: 0 0RF
dorzolamide-timolol [Cosopt] 22.3-6.8 mg/mL Drops
1 drp BOTH EYES BID Qty: 0 0RF
Discharge Orders:
Discharge Patient (As Directed); Ordered 11/18/24
Ordered By: Patricia Rabago
Care Plan Goals
Care Plan Goals:
Problem: Readiness for enhanced knowledge related to diagnosis and treatment plan
Goal: Understand your diagnosis and treatment plan needs, including medications if applicable.
Instructions: Know your diagnosis, underlying causes and treatment plan options, including medications if applicable. Consult with your health care team to learn about your diagnosis and treatment plan, including medications if applicable.
Discharge Date and Time
Print Language: YORUBA
--- NOTE | 2024-11-18 08:26 | W.PN.CARDCBS ---
Addendum entered and electronically signed by Gil Marques MD 11/18/24 11:07:
Data reviewed
Findings, assessments, and recommendations per Maite Richards reviewed
Patient discharged before seen by me, all seems very reasonable.
Original Note:
Today's Communication / Plan
-
Cont Lopressor 12.5 mg BID upon d/c
Cont aspirin 81 mg daily
LDL 89 and new to atorvastatin, would continue upon d/c
Patient asking to switch to Dr. Galindo, it is closer to her home now, will arrange
Impression / Plan
-
PCP: Dr. Krystian Martinez
Operator Assistant I Cementing: Dr. Montoya at [facility] in [place], asking to switch to Dr. Galindo
Impression:
Admitted with chest pain and elevated Troponin 11/16/24
Elevated Troponin, likely nonischemic myocardial injury Troponin elevation
HTN emergency on admission
Newly diagnosed HTN
Hyperglycemia with HgbA1c 5.6%
Echo 11/17/2024: EF 55 to 60%, mild MR, mild to moderate aortic regurgitation, mild to moderate TR with PAP 30 to 35 mmHg
Plan:
-Patient with CP, elevated troponin and abnormal ECG on admission, but no evidence of WMA on echo and cardiac cath showed nonobstructive CAD. Will manage as a nonischemic myocardial injury troponin elevation due to hypertensive emergency on
admission.
-Patient is new to Lopressor 25 mg BID and BP has improved throughout admission. No hypotension
-Patient is new to aspirin 81 mg daily
-LDL 89 and patient is new to atorvastatin 20 mg daily
Patient had previously seen a cnc machine operator through [facility] and [place], but is asking to switch to Dr. Galindo as is geographically closer, will arrange.
-Patient is stable for d/c to home from a cardiac standpoint
Progress Note - Operator Assistant I Cementing
Subjective
Date of Service: November 18, 2024
Feels well, no recurrence of CP
Objective
Labs:
11/18/24 02:57
11/18/24 02:57
Labs
Hgb 12.8 g/dL (12.0-16.0) 11/18/24 02:57
Hct 39.5 % (37.0-47.0) 11/18/24 02:57
Plt Count 166 10^3/uL (130-400) 11/18/24 02:57
APTT 26.3 Sec (23.4-35.0) 11/18/24 02:57
Sodium 139 mmol/L (135-145) 11/18/24 02:57
Potassium 4.2 mmol/L (3.5-5.1) 11/18/24 02:57
BUN 13 mg/dl (7-17) 11/18/24 02:57
Creatinine 0.7 mg/dL (0.6-1.0) 11/18/24 02:57
Glucose 92 mg/dl (70-99) 11/18/24 02:57
Troponins
11/16/24 11/16/24 11/16/24
13:32 16:06 21:37
Troponin I 0.065 H* 0.796 H* D 0.997 H* D
11/16/24 11/18/24
23:10 02:57
Troponin I 0.878 H* 0.088 H*
Vital Signs and I&O:
Vital Signs
Temp Pulse Resp BP Pulse Ox
97.7 F 52 18 123/70 97
11/18/24 07:02 11/18/24 02:45 11/18/24 07:02 11/18/24 02:45 11/18/24 07:02
Vital Signs
Temp Pulse Resp BP Pulse Ox
97.7 F 52 18 123/70 97
11/18/24 07:02 11/18/24 02:45 11/18/24 07:02 11/18/24 02:45 11/18/24 07:02
Intake & Output
11/16/24 11/17/24 11/18/24 11/19/24
06:59 06:59 06:59 06:59
Intake Total 1680 / 1680 1200 / 1200
Balance 1680 / 1680 1200 / 1200
Physical Exam
Physical Exam
GEN: NAD. AAOx3
HEENT: EOMI, MMM
LUNGS: RA. No audible wheeze
CV: SR on tele. Reg
ABD: ND
EXT: Right radial without hematoma or ecchymosis. No edema B/L
NEURO: Gross non-focal
SKIN: No rash
[2024-11-18] MEDS: LOW STRENGTH ASPIRIN 81 MG PO (09:21)
[2024-11-18] MEDS: LOPRESSOR 25 MG PO (09:22)
[2024-11-18] MEDS: COSOPT EYE DROPS 1 DROP BOTH EYES (09:22)
--- NOTE | 2024-11-18 11:00 | PTCARENOTE ---
Pt's IV line & telemetry pack D/C'd; D/C instructions discussed w/pt & pt's daughter. Pt escorted out via wheelchair by staff w/personal belongings incl cell phone & wringer and setter.
== END 2024-11-18 10:55 | disposition home or self-care (01) | DRG 282 ==
LOC: IVU 16:31
PROVIDERS: Emergency Medicine; Physician Assistant; ADMITTING PHYSICIAN Hospitalist; ATTENDING PHYSICIAN Internal Medicine; CONSULT PHYSICIAN Internal Medicine Cardiovascular Disease; EMERGENCY PHYSICIAN Student in an Organized Health Care Education/Training Program; FAMILY PHYSICIAN Family Medicine
PROC: B2111ZZ Fluoroscopy of Multiple Coronary Arteries using Low Osmolar Contrast (ICD-10-PCS; 2024-11-17)
PROC: 4A023N7 Measurement of Cardiac Sampling and Pressure, Left Heart, Percutaneous Approach (ICD-10-PCS; 2024-11-17)
DX: I16.1 Hypertensive emergency (principal); I21.4 Non-ST elevation (NSTEMI) myocardial infarction; H40.9 Unspecified glaucoma; Z90.49 Acquired absence of other specified parts of digestive tract; Z90.710 Acquired absence of both cervix and uterus; Z96.653 Presence of artificial knee joint, bilateral; Z87.891 Personal history of nicotine dependence; Z88.0 Allergy status to penicillin; M19.90 Unspecified osteoarthritis, unspecified site; I35.1 Nonrheumatic aortic (valve) insufficiency; I25.10 Atherosclerotic heart disease of native coronary artery without angina pectoris; I07.1 Rheumatic tricuspid insufficiency; K59.00 Constipation, unspecified
CPT/HCPCS: 71046; 80048; 80053; 80061; 83036; 83735; 84484; 85025; 85027; 85730; 93005; 93306; 93458; 96374; 99152; 99153; 99291; C1894; Q9967